=== PATIENT | male | born 1960 | race Caucasian/White ===

== ENCOUNTER 2020-09-23 14:36 | Emergency (ER) | payer MEDICAID, OTHER ==
[~2020-09-23] VITALS: Ht 170.2 cm; Wt 73.0 kg
[2020-09-23] MEDS ORDERED: ONDANSETRON ODT 4 MG PO ONE (15:00)
[2020-09-23] MEDS ORDERED: HYDROcodone/APAP 5/325 TABLET PO ONE (15:00)
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
[2020-09-23] MEDS ORDERED: ONDANSETRON ODT 4 MG ONE (15:06)
[2020-09-23] MEDS ORDERED: HYDROcodone/APAP 5/325 TABLET ONE (15:06)
--- NOTE | 2020-09-23 15:13 | NUR ---
PT TO CT
[2020-09-23 16:08] VITALS: BP 124/76
--- NOTE | 2020-09-23 16:09 | NUR ---
PT BACK FROM IMAGING. NIR SALES. CALL LIGHT IN REACH.
--- NOTE | 2020-09-23 16:47 | NUR ---
discharge instructions reviewed, pt verbalized understanding. ambulatory to discharge desk with steady gait, accompanied by friend
== END 2020-09-23 16:49 | disposition home or self-care (01) ==
LOC: ED 16:15
DX: S06.0X0A Concussion without loss of consciousness, initial encounter (principal); S39.012A Strain of muscle, fascia and tendon of lower back, initial encounter; S93.492A Sprain of other ligament of left ankle, initial encounter; F17.210 Nicotine dependence, cigarettes, uncomplicated; M54.2 Cervicalgia; V02.19XA Pedestrian with other conveyance injured in collision with two- or three-wheeled motor vehicle in traffic accident, initial encounter; Y93.89 Activity, other specified; Y92.410 Unspecified street and highway as the place of occurrence of the external cause; Y99.8 Other external cause status
CPT/HCPCS: 70450; 72110; 72125; 73610; 99285; Q0162